=== PATIENT | female | born 1975 | race Caucasian/White ===

== ENCOUNTER 2017-01-16 16:49 | Emergency (ER) | payer MEDICARE, MEDICAID ==
[~2017-01-16 16:49] MED LIST: ADVAIR DIS1 PUFF/DO1 IH; ANTIVERT-DPS25 MG PO; ATARAX-DPS25 MG PO; BENADRYL-DPS25 MG PO; BENADRYL-DPS50 MG PO; CENTRUM COMPLE1 EACH PO; COMPAZINE10 MG PO; COREG DPS12.5 MG PO; COREG25 MG PO; DELTASONE DPS1 MG; DELTASONE DPS5 MG PO; DULCOLAX-DPS5 MG PO; EMLA CREAM 2.5%5 GM TP; FLONASE 0.05% D16 GM NS; IMODIUM DPS2 MG PO; LIDODERM PATC1 PATCH TP; MAALOX DPS30 ML PO; MULTI-DAY PLUS1 EACH PO; MYFORTIC180 MG PO; NEURONTIN DPS100 MG PO; NEURONTIN DPS300 MG PO; NEXIUM40 MG PO; OXY IR DPS5 MG; PERCOCET 5 DPS1 TAB PO; PERCOCET 5-3251 EACH PO; PERCOCET 7.5 DP1 TAB PO; PROAIR HFA8.5 GM IH; PROCRIT10000 UNIT IV; PROCRIT10000 UNIT SQ; PROGRAF0.5 MG PO; RENVELA800 MG PO; REQUIP DPS2 MG PO; SENOKOT S1 TAB PO; SOD BICARB TAB650 MG PO; SOLIRIS10 MG/ML IV; SURFAK DPS240 MG PO; SYNTHROID DPS0.1 MG PO; SYNTHROID100 MCG PO; TYLENOL DPS325 MG PO; ULTRAM DPS50 MG PO; VIBRAMYCIN-DPS100 M2 PO; VITAMIN D-32000 UNI1 PO; VITAMIN D31000 UNIT PO; XANAX DPS0.25 MG PO; XANAX DPS1 MG PO; ZOFRAN4 MG PO; ZOFRAN8 MG PO; ZOLOFT DPS25 MG PO; ZOLOFT DPS50 MG PO; ZYRTEC DPS10 MG PO
--- NOTE | 2017-01-17 14:38 | NUR ---
Pt triggered for high ED user. SWS called and spoke with pt. Pt states she is doing better. States she is making an appt with her PCP, SUSAN Bravo. Pt states she has transportation and able to fill her medications. Deny any needs at this time.
--- NOTE | 2017-02-04 21:34 | ER ---
ADMIT: 01/16/2017 RM/LOC: ER [facility] MR#: [id number] [address] [id number] [address] [place] [address] Emergency Room Report SEX: F AGE: 41 : 1975 DATE: 01/16/2017 HISTORY OF PRESENT ILLNESS: A 41-year-old female, comes in concerned about a fast heart beat. She says it has been present for the past several days. She did have abdominal surgery this month and would like to know why her beat is fast at times. She has seen her primary physician for it. 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 Other than feeling a fast heart beat, she has no other complaints or symptoms. See T-sheet for history and physical. EKG showed LVH with no other acute findings. Her electrolytes, potassium is 3.3, bicarb is 37, glucose 132, and creatinine 2.1. TSH was 0.387. CBC with a white count of 4.7, hemoglobin 10.5. The patient was diagnosed with palpitations, instructed to follow up with primary doctor this week. Geovanni Schmidt MD/ miky JOB #: [id number] CC: Mihai Mccall MD, Attending Physician Other Physician, Family Physician
== END 2017-01-16 18:30 | disposition home or self-care (01) ==
LOC: ER 16:49
DX: R00.2 Palpitations (principal); R00.0 Tachycardia, unspecified